=== PATIENT | female | born 1990 | race Caucasian/White ===

== ENCOUNTER 2020-06-12 04:22 | Inpatient (IN) | payer OTHER ==
[2020-06-12] MEDS: ELECTROLYTE-148 SOLN 1,000 ML IV SCH (16:45)
[2020-06-12] MEDS ORDERED: morphine SULFATE/Preservative Free 0.5 MG/ML (1cc Syringe) ONE (17:14)
[2020-06-12 17:23] VITALS: BMI 30.4
[2020-06-12] MEDS ORDERED: CITRIC ACID/SODIUM CITRATE 30 ML UNIT-DOSE CUP PO ONE (17:24)
[2020-06-12] MEDS ORDERED: ONDANSETRON 4 MG/2 ML VIAL IVPUSH PRN ×2 (17:25)
[2020-06-12] MEDS ORDERED: morphine SULFATE/PF 0.5 MG/ML (2cc Syringe - QUVA) SPIN ONE (17:25)
[2020-06-12] MEDS ORDERED: ACETAMINOPHEN 1000 MG/100 ML VIAL (NON FORMULARY) IVPB ONE (17:28)
[2020-06-12 17:44] LABS: INR 0.86 (0.83-1.09); PROTHROMBIN TIME (PATIENT) 10.6 SEC (9.7-13.0)
[2020-06-12 17:46] LABS: ACTIVATED PTT 24.6 SECONDS (25.2-36.5); BASO % 0.2 % (0-2.0); EOS % 1.8 % (0-4.5); HEMATOCRIT 36.6 % (32.4-45.2); HEMOGLOBIN 12.4 GM/dL (10.7-15.3); LYMPH % 17.9 % (8-40); MCH 30.6 pg (25.7-33.7); MCHC 33.8 g/dl (32.0-36.0); MEAN CELL VOLUME 90.6 fl (80-96); MONO % 7.2 % (3.8-10.2); NEUT % 72.9 % (42.8-82.8); PLATELET COUNT 263 K/MM3 (134-434); RBC 4.04 M/mm3 (3.60-5.2); RDW 14.2 % (11.6-15.6); WHITE BLOOD COUNT 10.2 K/mm3 (4.0-10.0)
[2020-06-12 18:00] LABS: POTASSIUM 4.5 mmol/L (3.5-5.1)
[2020-06-12 18:01] LABS: BLOOD UREA NITROGEN 7.8 mg/dL (7-18)
[2020-06-12 18:05] LABS: CREATININE 0.4 mg/dL (0.55-1.3)
[2020-06-12] MEDS ORDERED: ONDANSETRON 4 MG/2 ML VIAL IVPB PRN (18:38)
[2020-06-12] MEDS ORDERED: ACETAMINOPHEN 1000 MG/100 ML VIAL (NON FORMULARY) IVPB PRN (18:38)
[2020-06-12] MEDS ORDERED: SENNOSIDES/DOCUSATE COMBO (SENNA PLUS) TABLET (UD) PO PRN (18:38)
[2020-06-12] MEDS ORDERED: OXYTOCIN 20 UNITS in 0.9% NS 20 UNIT/1,000 ML INFUS.BAG IV SCH (18:45)
[2020-06-12] MEDS ORDERED: LACTATED RINGERS SOLUTION 1,000 ML/1,000 ML INFUS.BAG IV SCH (19:00)
[2020-06-12] MEDS: IBUPROFEN 800 MG/8 ML IJ IVPB PRN (21:50)
[2020-06-13] MEDS ORDERED: CALAMINE 8% TOPICAL LOTION 177 ML BOTTLE TP PRN (08:25)
[2020-06-13] MEDS ORDERED: HYDROCORTISONE 1% TOPICAL CREAM 30 GM TUBE TP PRN (08:30)
[2020-06-13] MEDS ORDERED: diphenhydrAMINE HCL 25 MG CAPSULE (FP) PO PRN (08:31)
[2020-06-13] MEDS: IBUPROFEN 800 MG/8 ML IJ IVPB PRN (08:42)
[2020-06-13 08:49] LABS: BASO % 0.1 % (0-2.0); EOS % 1.3 % (0-4.5); HEMATOCRIT 30.3 % (32.4-45.2); HEMOGLOBIN 10.3 GM/dL (10.7-15.3); MCH 30.7 pg (25.7-33.7); MCHC 33.9 g/dl (32.0-36.0); MEAN CELL VOLUME 90.5 fl (80-96); MEAN PLT VOLUME 7.9 fl (7.5-11.1); MONO % 8.4 % (3.8-10.2); NEUT % 81.2 % (42.8-82.8); PLATELET COUNT 233 K/MM3 (134-434); RBC 3.35 M/mm3 (3.60-5.2); RDW 14.1 % (11.6-15.6); WHITE BLOOD COUNT 11.5 K/mm3 (4.0-10.0)
[2020-06-13] MEDS: CALAMINE 8% TOPICAL LOTION 177 ML BOTTLE TP SCH ×2 (10:17→22:34)
[2020-06-13] MEDS: HYDROCORTISONE 1% TOPICAL CREAM 30 GM TUBE TP SCH ×2 (10:18→22:34)
[2020-06-13] MEDS ORDERED: ACETAMINOPHEN 500 MG TABLET (FP) PO PRN (15:58)
[2020-06-13] MEDS: ELECTROLYTE-148 SOLN 1,000 ML IV SCH (16:10)
[2020-06-13] MEDS: SIMETHICONE 80 MG TAB.CHEW (FP) PO PRN (16:46)
[2020-06-13] MEDS ORDERED: IBUPROFEN 800 MG/8 ML IJ IVPB SCH (17:00)
[2020-06-13] MEDS ORDERED: ACETAMINOPHEN 325 MG TABLET (FP) PO PRN (18:38)
[2020-06-13] MEDS ORDERED: BISACODYL 10 MG SUPP.RECT RC PRN (18:38)
[2020-06-13] MEDS ORDERED: IBUPROFEN 600 MG TABLET (FP) PO PRN (18:38)
[2020-06-13] MEDS: oxyCODONE HCL 5 MG TABLET PO PRN (20:45)
[2020-06-14] MEDS ORDERED: IBUPROFEN 600 MG TABLET (FP) PO PRN (06:00)
[2020-06-14] MEDS: oxyCODONE HCL 5 MG TABLET PO PRN (07:33)
[2020-06-14] MEDS: ACETAMINOPHEN 325 MG TABLET (FP) PO PRN ×3 (07:34→20:22)
[2020-06-14] MEDS: hydrOXYzine PAMOATE 25 MG CAPSULE (FP) PO PRN ×3 (09:18→21:56)
[2020-06-14] MEDS: HYDROCORTISONE 1% TOPICAL CREAM 30 GM TUBE TP SCH ×2 (09:19→21:58)
[2020-06-14] MEDS: CALAMINE 8% TOPICAL LOTION 177 ML BOTTLE TP SCH ×2 (09:20→21:58)
[2020-06-14 10:24] LABS: BASO % 0.2 % (0-2.0); HEMATOCRIT 31.9 % (32.4-45.2); HEMOGLOBIN 10.7 GM/dL (10.7-15.3); LYMPH % 12.1 % (8-40); MCH 30.3 pg (25.7-33.7); MCHC 33.5 g/dl (32.0-36.0); MEAN CELL VOLUME 90.6 fl (80-96); MEAN PLT VOLUME 7.7 fl (7.5-11.1); MONO % 5.9 % (3.8-10.2); NEUT % 79.8 % (42.8-82.8); PLATELET COUNT 272 K/MM3 (134-434); RBC 3.53 M/mm3 (3.60-5.2); RDW 14.3 % (11.6-15.6); WHITE BLOOD COUNT 11.6 K/mm3 (4.0-10.0)
[2020-06-14 11:43] LABS: POTASSIUM 4.1 mmol/L (3.5-5.1)
[2020-06-14 11:45] LABS: BLOOD UREA NITROGEN 7.3 mg/dL (7-18); CALCIUM 8.8 mg/dL (8.5-10.1)
[2020-06-14 11:46] LABS: ALBUMIN 2.2 g/dl (3.4-5.0)
[2020-06-14 11:48] LABS: CREATININE 0.6 mg/dL (0.55-1.3)
[2020-06-14 11:50] LABS: BILIRUBIN,TOTAL 0.4 mg/dL (0.2-1); TOT PROT 5.6 g/dl (6.4-8.2)
[2020-06-14] MEDS: IBUPROFEN 600 MG TABLET (FP) PO PRN ×2 (13:05→20:22)
[2020-06-14] MEDS: SIMETHICONE 80 MG TAB.CHEW (FP) PO PRN (20:22)
[2020-06-15] MEDS: SIMETHICONE 80 MG TAB.CHEW (FP) PO PRN ×2 (05:20→20:21)
[2020-06-15] MEDS: hydrOXYzine PAMOATE 25 MG CAPSULE (FP) PO PRN ×4 (05:20→20:20)
[2020-06-15] MEDS: IBUPROFEN 600 MG TABLET (FP) PO PRN ×3 (05:20→20:19)
[2020-06-15] MEDS: ACETAMINOPHEN 325 MG TABLET (FP) PO PRN ×3 (05:21→20:20)
[2020-06-15] MEDS: HYDROCORTISONE 1% TOPICAL CREAM 30 GM TUBE TP SCH ×2 (10:17→22:39)
[2020-06-15] MEDS: CALAMINE 8% TOPICAL LOTION 177 ML BOTTLE TP SCH ×2 (10:17→22:38)
[2020-06-15 22:42] VITALS: TEMP 97.8
[2020-06-16] MEDS: hydrOXYzine PAMOATE 25 MG CAPSULE (FP) PO PRN ×3 (00:19→09:10)
[2020-06-16] MEDS: ACETAMINOPHEN 325 MG TABLET (FP) PO PRN ×2 (00:19→05:58)
[2020-06-16] MEDS: IBUPROFEN 600 MG TABLET (FP) PO PRN ×2 (00:20→05:59)
[2020-06-16] MEDS: ELECTROLYTE-148 SOLN 1,000 ML IV SCH (07:39)
[2020-06-16] MEDS ORDERED: predniSONE 20 MG TABLET (UD) PO ONE (07:50)
[2020-06-16 10:18] VITALS: BP 132/79; PULSE 95
[2020-06-16] MEDS: CALAMINE 8% TOPICAL LOTION 177 ML BOTTLE TP SCH (10:41)
[2020-06-16] MEDS: HYDROCORTISONE 1% TOPICAL CREAM 30 GM TUBE TP SCH (10:41)
== END 2020-06-16 10:55 | disposition home or self-care (01) | DRG 540 ==
LOC: JLDR 04:22 → UNDOADMIN 04:22 → JLDR 16:22 → J3W 20:00
PROVIDERS: ADMIT Specialist; ATTEND Specialist
PROC: 10D00Z1 Extraction of Products of Conception, Low, Open Approach (ICD-10-PCS; principal; 2020-06-12)
DX: O30.003 Twin pregnancy, unspecified number of placenta and unspecified number of amniotic sacs, third trimester (principal); Z37.2 Twins, both liveborn; O26.613 Liver and biliary tract disorders in pregnancy, third trimester; K83.1 Obstruction of bile duct; O32.2XX2 Maternal care for transverse and oblique lie, fetus 2; O32.1XX1 Maternal care for breech presentation, fetus 1; O26.893 Other specified pregnancy related conditions, third trimester; L29.8 Other pruritus; Z3A.35 35 weeks gestation of pregnancy
CPT/HCPCS: 36415; 80048; 80053; 85025; 85461; 85610; 85730; 86780; 86850; 86870; 86900; 86901; 86902; 86999; 88307-TC; C9803; U0003; U0005